=== PATIENT | male | born 1995 | race Caucasian/White ===

== ENCOUNTER 2016-11-10 02:43 | Emergency (ER) | payer SELFPAY ==
[~2016-11-10] VITALS: Ht 162.6 cm; Wt 59.1 kg
[~2016-11-10 02:43] MED LIST: ALPR0.5T PO; AMPH15TA PO; FLUO20CA25 PO
[2016-11-10 02:46] VITALS: BP 141/89; PULSE 106; RESP 20; O2SAT 99
--- NOTE | 2016-11-10 03:01 | ED.REPORT ---
HPI-General Illness Date of Service Nov 10, 2016 ED Provider: Dr. Chinmay Taylor MD A 21 year old male with a history of depression, anxiety and panic attacks presents to the ED with worsening anxiety that began this evening. The patient believes that he is currently withdrawing from Percocet and admits to taking at least 1 per day for the past few weeks. He also reports taking acetaminophen this evening. He has experienced similar symptoms during his previous panic attacks but believes that this episode is worse because of the withdrawal symptoms. Withdrawal symptoms currently include chills, diaphoresis, piloerection. tremors, and nausea without vomiting. Nursing Notes Stated Complaint: ANXIETY Chief Complaint: General Complaint Nursing Notes Reviewed: Yes Allergies: Coded Allergies: No Known Allergies (Unverified Allergy, Unknown, 11/10/16) Scheduled Dextroamphetamine/Amphetamine (Adderall) 15 Mg Tablet 15 MG PO DAILY Fluoxetine (Fluoxetine) 20 Mg Capsule 20 MG PO DAILY Loperamide (Loperamide) 2 Mg Capsule 2 MG PO Q4H Scheduled PRN Alprazolam (Xanax) 0.5 Mg Tablet 0.5 MG PO TID PRN PRN For Anxiety Clonidine (Clonidine) 0.2 Mg Tablet 0.2 MG PO BID PRN PRN For Withdrawal Symptoms Hydroxyzine Pamoate (Vistaril) 50 Mg Capsule 50 MG PO HS PRN PRN For Insomnia Ondansetron ODT (Ondansetron ODT) 8 Mg Tab.rapdis 8 MG PO QID PRN PRN For Nausea General Time Seen by MD: 03:01 Chief Complaint Other (Anxiety) Hx Obtained From: Patient Arrived By: Walk-in Sudden in Onset?: No Onset Occurred: Just prior to arrival Symptom Duration: Since onset Associated with: Reports: Nausea, Denies: Vomiting Pertinent Negative: Pt denies other symptoms Recent Healthcare: No recent doctor visit, No recent hospitalization Past Medical History Past Medical History Depression Anxiety Past Surgical History None reported. Smoking History Current Every Day Smoker Social History Alcohol Use: "Social" Drug Use: THC, Other (Percocet) Other Social History: Local resident Ambulatory Status Independent Review of Systems + piloerection Full Review of Systems Constitutional: Reports: Chills GI: Reports: Nausea, Denies: Vomiting Skin: Reports Diaphoresis Neurologic: Reports: Shaking Psychiatric: Reports: Anxiety Complete sys rev & neg: except as marked. Physical Exam Vital Signs Vital Signs Date Time Temp Pulse Resp B/P Pulse Ox O2 Delivery O2 Flow Rate FiO2 11/10/16 05:39 18 98 Room Air 11/10/16 02:46 37.1 106 20 141/89 99 Room Air Initial VS: Reviewed Neck: Supple, Non-tender, Full range of motion Extremities: Vascular intact, Neuro intact, No swelling, No tenderness General/Constitutional: Awake, Alert Behavior: Positive: Anxious Head / Eyes: Atraumatic, Normocephalic, PERRL Respiratory / Chest: Atraumatic, Breath sounds NL, Breath sounds = bilat, No respiratory distress Cardiovascular: Heart rate NL, Regular rhythm, Heart sounds NL Abdomen: Atraumatic, Soft Skin: Atraumatic, Color NL, No rash, Warm Color / Condition: Positive: Diaphoresis present Diffuse piloerection Neurologic: Oriented X3, Speech NL, No sensory deficits, CN II - XII intact Movement Abnormality: Positive: Tremor Psychiatric: Not suicidal, Not homicidal Abnormal Mood/Affect: Positive: Anxious Interpretation & Diagnostics Drug Screen / Level Interp Urine positive opiate, Serum positive tricyclic Re-Eval/Medical Decision Med Decision/Clinical Course 21-year-old history of panic disorder presents with ostensible panic symptoms, but by and large appears to be withdrawing from opioids. Patient is requesting Suboxone and he was given contact info for ideal options. He was given clonidine loperamide and Zofran here. Single dose of clonazepam given. He is discharged in improved condition with a standard clonidine detox. Time of Eval: 05:01 Patient Status: Condition improved Re-Evaluation/Progress Note: Patient is re-evaluated. His anxiety has improved upon recheck. He is informed of his results and the intended treatment plan. Counseled Regarding: Diagnosis, Need for follow-up, When/why to return to ED Discharge & Departure Primary Impression: Opiate withdrawal Additional Impression: Anxiety Disposition: Home Discharge Condition All VS Reviewed: Yes Condition: Improved Patient Instructions: Anxiety (ED), Opioid Withdrawal (ED) Additional Instructions: Do not use opioid drugs. Your apparently experiencing withdrawal at the moment. This will last about a week or so. We can support you through that time with clonidine and loperamide. Clonidine 0.2 mg twice daily. May take up to three times daily if needed. Loperamide every 2-4 hours if needed for diarrhea. Zofran needed for nausea. Follow-up with your doctor in the office. Vistaril as needed at night for anxiety and sleep. Referrals: Corinna Melo (PCP) Scribe Attestation Portions of this note were transcribed by Farhad Holden. I, Dr. Taylor personally performed the history, physical exam and medical decision-making; I reviewed and confirmed the accuracy of the information in the transcribed note. copies to: Corinna Melo Christopher W MD Nov 10, 2016 03:01 FARHAD HOLDEN Nov 10, 2016 03:09
[2016-11-10] MEDS ORDERED: Ondansetron 8 mg ODT Tablet PO ONE (04:10)
[2016-11-10] MEDS ORDERED: cloNIDine 0.1 mg Tablet PO ONE (05:10)
[2016-11-10] MEDS ORDERED: CLON0.2T PO (05:12)
[2016-11-10] MEDS ORDERED: LOPE2CAP PO (05:12)
[2016-11-10] MEDS ORDERED: ONDA8TAB10 PO (05:12)
[2016-11-10] MEDS ORDERED: HYDR50CA PO (05:12)
[2016-11-10 05:39] VITALS: RESP 18; O2SAT 98
== END 2016-11-10 05:42 | disposition home or self-care (01) ==
LOC: SED 02:43
DX: F11.23 Opioid dependence with withdrawal (principal); F41.9 Anxiety disorder, unspecified; F17.200 Nicotine dependence, unspecified, uncomplicated; Z79.899 Other long term (current) drug therapy